=== PATIENT | male | born 2000 | race Caucasian/White ===

== ENCOUNTER 2023-10-13 01:39 | Emergency (ER) | payer OTHER ==
[2023-10-13 02:00] VITALS: BP 150/76; PULSE 67; RESP 20; TEMP 98.2; BMI 33.2
== END 2023-10-13 02:05 | disposition left against medical advice (07) ==
LOC: JER 01:39
DX: M79.605 Pain in left leg (principal); V89.2XXA Person injured in unspecified motor-vehicle accident, traffic, initial encounter; Y92.410 Unspecified street and highway as the place of occurrence of the external cause
CPT/HCPCS: 99283-25